=== PATIENT | male | born 1960 | race Caucasian/White ===

== ENCOUNTER 2021-06-10 12:36 | Outpatient (REF) | payer OTHER, SELFPAY ==
[2021-06-10 12:47] LABS: MANUAL DIFF FLAG NO
[2021-06-10 13:02] LABS: Basophils Percent Auto 0.4 % (0-2); Eosinophils Absolute Auto 0.1 X10*3/uL (0.0-0.4); Eosinophils Percent Auto 1.9 % (0-4); Hemoglobin 14.5 g/dl (14.0-18.0); Imm Gran Abs Auto 0.01 X10*3/uL (0.00-0.03); Imm Gran Pct Auto 0.2 % (0.0-0.4); Lymphocytes Absolute Auto 1.7 X10*3/uL (1.2-4.9); Lymphocytes Percent Auto 32.5 % (20-40); Mean Corpuscular HGB Conc 34.5 g/dl (31.0-36.0); Mean Corpuscular Hemoglobin 30.4 pg (27.0-33.0); Mean Corpuscular Volume 88.1 fL (80.0-98.0); Mean Platelet Volume 9.4 fL (9.4-12.4); Monocytes Absolute Auto 0.5 X10*3/uL (0.1-1.2); Neutrophils Absolute Auto 2.9 x10*3/uL (2.0-8.3); Platelet Count 187 X10*3/uL (160-400); Red Blood Count 4.77 X10*6/uL (4.60-5.80); Red Cell Distribution Width 12.9 % (11.0-16.0); White Blood Count 5.2 X10*3/uL (4.8-10.8)
[2021-06-10 13:37] LABS: Alanine Aminotransferase 31 U/L (0-40); Albumin Level 4.3 g/dL (3.5-5.0); Alkaline Phosphatase 65 U/L (39-117); Anion Gap 13 (12-20); Aspartate Amino Transferase 26 U/L (5-37); Bilirubin Total 0.7 mg/dL (0.0-1.0); Blood Urea Nitrogen 21 mg/dL (9-16); Calcium 9.1 mg/dL (8.4-10.2); Carbon Dioxide 26 mmol/L (22-29); Chloride 103 mmol/L (96-108); Cholesterol 201 mg/dL; Estimated Glomerular Filt Rate > 60; Glucose Random 88 mg/dL (60-115); HDL Cholesterol 32 mg/dL; LDL Cholesterol Calculated 153 mg/dl; Sodium 138 mmol/L (135-145); Total Protein 7.3 g/dL (6.5-8.0); Triglycerides 83 mg/dL
[2021-06-10 13:59] LABS: Free T4 (Free Thyroxine) 0.86 ng/dL (0.71-1.85); Thyroid Stimulating Hormone 1.26 uIU/mL (0.32-4.0)
[2021-06-10 14:33] LABS: Folate 11.9 ng/mL (> or = 4.0); Vitamin B12 633 pg/mL (200-900)
[2021-06-15 02:07] LABS: Testosterone, Total 196 ng/dL (250-1100)
== END 2021-06-10 12:37 | disposition home or self-care (01) ==
LOC: HO.LAB 12:36
PROVIDERS: PCP Internal Medicine; Visit Provider Internal Medicine
DX: Z12.5 Encounter for screening for malignant neoplasm of prostate (principal); E29.1 Testicular hypofunction
CPT/HCPCS: 36415; 80053; 80061; 82607; 82746; 84153; 84403; 84439; 84443; 85025

== ENCOUNTER 2022-03-03 09:04 | Outpatient (REF) | payer OTHER, SELFPAY ==
[2022-03-03 10:21] LABS: Hematocrit 42.9 % (42.0-52.0); Hemoglobin 14.7 g/dl (14.0-18.0); Mean Corpuscular HGB Conc 34.3 g/dl (31.0-36.0); Mean Corpuscular Hemoglobin 30.6 pg (27.0-33.0); Mean Corpuscular Volume 89.4 fL (80.0-98.0); Mean Platelet Volume 9.9 fL (9.4-12.4); Platelet Count 218 X10*3/uL (160-400); Red Cell Distribution Width 12.4 % (11.0-16.0); White Blood Count 5.6 X10*3/uL (4.8-10.8)
[2022-03-03 11:12] LABS: Alanine Aminotransferase 24 U/L (0-40); Albumin Level 4.5 g/dL (3.5-5.0); Alkaline Phosphatase 80 U/L (39-117); Anion Gap 15 (12-20); Aspartate Amino Transferase 22 U/L (5-37); Bilirubin Direct 0.2 mg/dL (0.0-0.5); Bilirubin Total 0.5 mg/dL (0.0-1.0); Blood Urea Nitrogen 21 mg/dL (9-16); Calcium 9.5 mg/dL (8.4-10.2); Carbon Dioxide 26 mmol/L (22-29); Chloride 104 mmol/L (96-108); Estimated Glomerular Filt Rate > 60; Glucose Random 98 mg/dL (60-115); Potassium 4.6 mmol/L (3.3-5.1); Sodium 140 mmol/L (135-145); Thyroid Stimulating Hormone 0.95 uIU/mL (0.32-4.0); Total Protein 7.2 g/dL (6.5-8.0)
== END 2022-03-03 09:05 | disposition home or self-care (01) ==
LOC: HO.LAB 09:04
PROVIDERS: PCP Internal Medicine; Visit Provider Internal Medicine
DX: M20.41 Other hammer toe(s) (acquired), right foot (principal)
CPT/HCPCS: 36415; 80048; 80076; 84443; 85027

== ENCOUNTER 2022-10-16 10:00 | Outpatient (AMB) | payer SELFPAY ==
--- NOTE | 2022-10-16 10:01 | MHC.PC.OV ---
Vital Signs 10/16/22 10:03 Height 5 ft 11 in Weight 193 lb BMI 26.9 BP 126/76 Blood Pressure Location Lt brachial Position Sitting Pulse 68 Pulse Source Pulse Oximeter Pulse Oximetry (%) 99 Intake Visit Reasons: loss of appetite, abdominal discomfort Intake Note: pt is here for c/o loss of appetite and abd discomfort. patient had teeth pulled and loss of taste and doesnt have desire to eat [employer] Required: No Accompanied by: Self / Same As Patient Allergies No Known Allergies Allergy (Verified 10/16/22 10:09) Medication List - Last Reconciled 10/16/22 by Isidro Mata PA-C No Known Home Meds Tobacco use date assessed: 10/16/22 Dental Screening Dental Screen Date: 10/16/22 Did you have a dental visit in the last 12 months?: Yes Did you have a dental problem in the last 6 months where you did not have access to dental care?: No Was dental information given to patient?: Patient has dentist HPI loss of appetite, abdominal discomfort HPI Details Patient is a 62-year-old male here today for problem visit. This is the 1st time I am meeting this 62-year-old male with a past medical history significant for hyperlipidemia and hypogonadism. He reports he had a few teeth pulled recently and has since lost his appetite. Has lost 10 lb since February of 2022. reports having epigastric dyscomfort just before and after he eats. Otherwise denies any constipation or diarrhea, dark tarry stools. Does report having infrequent episodes of vomiting if he eats too fast. [facility] Medical History Bimalleolar ankle fracture Hand fracture, right Hepatitis C virus infection cured after antiviral drug therapy Hypercholesterolemia Hypogonadism in male Overweight (BMI 25.0-29.9) Wrist fracture, right Surgical History History of knee surgery History of shoulder surgery Family History Father Heart attack Mother Bone cancer Sister No problems noted. Sister No problems noted. Daughter No problems noted. Daughter No problems noted. Son No problems noted. Social History Housing: House Alcohol intake: never Patient Tobacco Use Status: Never used Tobacco Years Smoked: pot smoking e-Cigarette/Vaping Use: Never Used Second Hand Smoke Exposure: No Current occupational status: employed Cognitive needs: No Hearing needs: No Vision needs: No Questionnaire PHQ-9 Over the last 2 weeks, how often have you been bothered by any of the following problems? 1. Little interest or pleasure in doing things: not at all 2. Feeling down, depressed, or hopeless: not at all 3. Trouble falling or staying asleep, or sleeping too much: not at all 4. Feeling tired or having little energy: not at all 5. Poor appetite or overeating: not at all 6. Feeling bad about yourself - or that you are a failure or have let yourself or your family down: not at all 7. Trouble concentrating on things, such as reading the newspaper or watching television: not at all 8. Moving or speaking so slowly that other people could have noticed. Or the opposite - being so fidgety or restless that you have been moving around a lot more than usual: not at all 9. Thoughts that you would be better off or of hurting yourself in some way: not at all Total score: 0 Depression Screening Interpretation: Negative 13818 - PHQ-9 Billing: Yes Source: Developed by Drs. Davide Ramos, Melody Enriquez, Js Gregg and colleagues, with an educational ramon from [employer]. Thrive Questionnaire Date Thrive assessed: 10/16/22 I am a: Patient What is your living situation today?: I have a steady place to live Within the past 12 months, did the food you bought not last and you didn't have the money to get more?: Never true Within the past 12 months, did you worry whether your food would run out before you got money to buy more?: Never true Do you have trouble paying for medicines?: No Do you have trouble getting transportation to medical appointments?: No Do you have trouble paying your heating and electricity bill?: No Do you have trouble taking care of your child, family member or friend?: No Do you have trouble with day-to-day activities such as bathing, preparing meals, shopping, managing finances, etc.?: No Are you currently unemployed and looking for a job?: No Are you interested in more education?: No Please select the resources that you would like help with: None Currently or been in a relationship where the following occur: no concerns reported CARMITA-7 AMB Questionnaire CARMITA-7 Date CARMITA - 7 assessed: 10/16/22 Feeling nervous, anxious, or on edge: 0 = Not at all Not being able to stop or control worryin = Not at all Worrying too much about different things: 0 = Not at all Trouble relaxin = Not at all Being so restless that it is hard to sit still: 0 = Not at all Becoming easily annoyed or irritable: 0 = Not at all Feeling afraid as if something awful might happen: 0 = Not at all Total CARMITA-7 score (0-4 normal; 5-9 mild; 10-14 moderate; 15-21 severe): 0 Source: Developed by Drs. Davide Ramos, Melody Enriquez, Js Gregg and colleagues, with an educational ramon from [employer]. CARMITA-7 Assessment Billing CARMITA-7 Assessment Tool: CARMITA-7 Assessment 63513 Review of Systems Const Denies headache(s) Eyes Denies loss of vision ENT Denies vertigo, Denies dizziness, Denies headache(s) and Denies sore throat Card Denies chest pain, Denies leg edema and Denies lightheadedness Resp Denies cough, Denies hemoptysis and Denies wheezing GI Reports abdominal pain, Denies melena, Denies constipation, Denies diarrhea and Denies vomiting Denies dysuria, Denies urinary frequency and Denies urinary urgency Musc Denies arthralgias, Denies joint swelling, Denies numbness and Denies tingling Neuro Denies Abnormal speech present, Denies behavioral changes, Denies vertigo, Denies dizziness, Denies headache(s), Denies loss of vision, Denies memory loss, Denies numbness and Denies tingling Psych Denies anxiety, Denies behavioral changes, Denies depression, Denies memory loss and Denies panic attacks Darrion/Lymph Denies easy bleeding and Denies easy bruising Aller/Immun Denies wheezing Physical exam (Primary Care) Vital Signs: Last Vital Signs Pulse 68 10/16/22 10:03 BP 126/76 10/16/22 10:03 Pulse Ox 99 10/16/22 10:03 BMI result Body Mass Index 26.9 Tobacco/Smoking Status: Tobacco use Status Tobacco use date assessed 10/16/22 10/16/22 10:02 Patient Tobacco Use Status Never used Tobacco 10/16/22 10:02 e-Cigarette/Vaping Use Never Used 10/16/22 10:02 PHQ-9: PHQ-9 Score PHQ-9: Total score 0 10/16/22 10:08 Depression Screening Interpretation: Negative Thrive Assessment: Date of Thrive Assessment Date Thrive assessed 10/16/22 10/16/22 10:08 Currently or been in a relationship where the following occur: no concerns reported Const General: healthy appearing, no acute distress, alert and awake Nutritional Appearance: well nourished Orientation/consciousness: oriented to person, oriented to place and oriented to time HENMT Ears: TM's normal bilaterally General nose exam: Normal nasal mucous membranes and turbinates present Eyes Conjunctivae: conjunctivae normal Sclerae: sclerae normal Pupils: Equal, round and reactive pupils present Neck Neck: Yes no lymphadenopathy and Yes no JVD Thyroid: Thyroid normal Carotids: no bruits Resp Effort & Inspection: normal respiratory effort and not tachypneic Auscultation: no crackles, no rales, no rhonchi and no wheezes Cardio Rate: regular rate Rhythm: regular rhythm Heart sounds: no murmurs and normal S1 and S2 GI Palpation (GI): Soft to palpation, nontender, no hepatomegaly and no splenomegaly Auscultation: normal bowel sounds Skin General skin exam: no rashes or lesions noted and dry skin Neuro General: oriented to person, oriented to place and oriented to time Cranial nerves: Yes Equal, round and reactive pupils present Speech: No Abnormal speech present Gait exam (Neuro): Normal gait present Motor exam (neuro): no tremor noted Extrem Right upper extremity: full ROM Left upper extremity: full ROM Right lower extremity: full ROM; no edema Left lower extremity: full ROM; no edema Psych Mental Status: mental status grossly normal Speech and movement: Normal speech and movement present Affect: normal affect Attitude: cooperative Thought process: Normal thought process present Assessment and Plan Assessment & Plan (1) Gastritis: Code(s): K29.70 - Gastritis, unspecified, without bleeding Qualifiers: Gastritis type: unspecified gastritis Chronicity: chronic Gastritis bleeding: without bleeding Qualified Code(s): K29.50 - Unspecified chronic gastritis without bleeding Plan: Patient's signs symptoms most consistent with gastritis. Recently had major dental work done and appetite has been change. Will supply patient with omeprazole to use for the next 3 weeks on a daily basis. Advised on low gastric irritant foods. Will send for nonfasting labs including lipase and H pylori stool testing. Orders: Orders Basic Metabolic Panel Today K29.50 - Unspecified chronic gastritis without bleeding Complete Blood Count no Diff Today K29.50 - Unspecified chronic gastritis without bleeding H pylori Ag Stool Today K29.50 - Unspecified chronic gastritis without bleeding Lipase Today K29.50 - Unspecified chronic gastritis without bleeding Liver Panel Today K29.50 - Unspecified chronic gastritis without bleeding Medications: New omeprazole 20 mg PO DAILY 21 days 21 caps 0RF K29.50 - Unspecified chronic gastritis without bleeding Coding Level of Care Code Est Pt Level 3 (24002) Diagnoses Gastritis K29.50 Gastritis type: unspecified gastritis Chronicity: chronic Gastritis bleeding: without bleeding Additional Codes CARMITA-7 Assessment Billing - CARMITA-7 Assessment Tool: CARMITA-7 Assessment 45081 ([id number])
[2022-10-16 10:03] VITALS: BP 126/76; PULSE 68; O2SAT 99; BMI 26.9
== END 2022-10-16 10:30 | disposition home or self-care (01) ==
PROVIDERS: PCP Internal Medicine; Visit Provider Physician Assistant
DX: K29.50 Unspecified chronic gastritis without bleeding (principal)
CPT/HCPCS: 99213

== ENCOUNTER 2022-10-16 10:33 | Outpatient (REF) | payer OTHER, SELFPAY ==
[2022-10-16 11:41] LABS: Hematocrit 41.6 % (42.0-52.0); Hemoglobin 14.3 g/dl (14.0-18.0); Mean Corpuscular HGB Conc 34.4 g/dl (31.0-36.0); Mean Corpuscular Hemoglobin 30.7 pg (27.0-33.0); Mean Corpuscular Volume 89.3 fL (80.0-98.0); Mean Platelet Volume 10.2 fL (9.4-12.4); Platelet Count 199 X10*3/uL (160-400); Red Blood Count 4.66 X10*6/uL (4.60-5.80); Red Cell Distribution Width 13.3 % (11.0-16.0); White Blood Count 6.4 X10*3/uL (4.8-10.8)
[2022-10-16 12:10] LABS: Alanine Aminotransferase 20 U/L (0-40); Albumin Level 4.3 g/dL (3.5-5.0); Alkaline Phosphatase 70 U/L (39-117); Anion Gap 14 (12-20); Aspartate Amino Transferase 17 U/L (5-37); Bilirubin Direct 0.1 mg/dL (0.0-0.5); Bilirubin Total 0.5 mg/dL (0.0-1.0); Blood Urea Nitrogen 16 mg/dL (9-16); Calcium 9.3 mg/dL (8.4-10.2); Carbon Dioxide 25 mmol/L (22-29); Chloride 105 mmol/L (96-108); Estimated Glomerular Filt Rate > 60; Glucose Random 75 mg/dL (60-115); Lipase 55 U/L (8-78); Potassium 3.7 mmol/L (3.3-5.1); Sodium 140 mmol/L (135-145); Total Protein 7.4 g/dL (6.5-8.0)
== END 2022-10-16 10:34 | disposition home or self-care (01) ==
LOC: HO.LAB 10:33
PROVIDERS: PCP Internal Medicine; Visit Provider Physician Assistant
DX: Z11.2 Encounter for screening for other bacterial diseases (principal); K29.50 Unspecified chronic gastritis without bleeding
CPT/HCPCS: 36415; 80048; 80076; 83690; 85027; 87338

== ENCOUNTER 2023-04-23 09:29 | Outpatient (AMB) | payer MEDICAID, SELFPAY ==
[2023-04-23 09:41] VITALS: BP 108/72; PULSE 60; O2SAT 97; BMI 27.8
--- NOTE | 2023-04-23 09:41 | A.OFFPC_ITS ---
Vital Signs 04/23/23 09:41 Height 5 ft 11 in Weight 199 lb 8 oz BMI 27.8 BP 108/72 Blood Pressure Location Lt brachial Position Sitting Pulse 60 Pulse Source Pulse Oximeter Pulse Oximetry (%) 97 Oxygen Delivery Method Room Air Intake Visit Reasons: low testosterone Intake Note: Dr. Coreas's patient here today to discuss low testosterone levels. Line Technician Required: No Accompanied by: Self / Same As Patient Allergies No Known Allergies Allergy (Verified 04/23/23 09:44) Tobacco use date assessed: 04/23/23 Dental Screening Dental Screen Date: 04/23/23 Did you have a dental visit in the last 12 months?: Yes Did you have a dental problem in the last 6 months where you did not have access to dental care?: No Was dental information given to patient?: Patient has dentist HPI low testosterone HPI Details Patient is a 63-year-old male here today to discuss testosterone levels. Patient has a past medical history significant hyperlipidemia, GERD, hypogonadism. He reports over last several months feeling somewhat tired, lethargic, low libido. Did have his testosterone checked in 2021 showing 196. He is interested in his testosterone checked and perhaps starting medication for erectile dysfunction. [facility] Medical History Bimalleolar ankle fracture Hand fracture, right Hepatitis C virus infection cured after antiviral drug therapy Hypercholesterolemia Hypogonadism in male Overweight (BMI 25.0-29.9) Wrist fracture, right Surgical History History of knee surgery History of shoulder surgery Family History Father Heart attack Mother Bone cancer Sister No problems noted. Sister No problems noted. Daughter No problems noted. Daughter No problems noted. Son No problems noted. Social History Housing: House Alcohol intake: never Patient Tobacco Use Status: Never used Tobacco Years Smoked: pot smoking e-Cigarette/Vaping Use: Never Used Second Hand Smoke Exposure: No Current occupational status: employed Cognitive needs: No Hearing needs: No Vision needs: No Questionnaire PHQ-9 Over the last 2 weeks, how often have you been bothered by any of the following problems? 1. Little interest or pleasure in doing things: not at all 2. Feeling down, depressed, or hopeless: not at all 3. Trouble falling or staying asleep, or sleeping too much: not at all 4. Feeling tired or having little energy: not at all 5. Poor appetite or overeating: not at all 6. Feeling bad about yourself - or that you are a failure or have let yourself or your family down: not at all 7. Trouble concentrating on things, such as reading the newspaper or watching television: not at all 8. Moving or speaking so slowly that other people could have noticed. Or the opposite - being so fidgety or restless that you have been moving around a lot more than usual: not at all 9. Thoughts that you would be better off or of hurting yourself in some way: not at all Total score: 0 Depression Screening Interpretation: Negative Depression Screening Done: Yes 46745 - PHQ-9 Billing: Yes Source: Developed by Drs. Davide Ramos, Melody Enriquez, Js Gregg and colleagues, with an educational ramon from [employer]. Thrive Questionnaire Date Thrive assessed: 04/23/23 I am a: Patient What is your living situation today?: I have a steady place to live Within the past 12 months, did the food you bought not last and you didn't have the money to get more?: Never true Within the past 12 months, did you worry whether your food would run out before you got money to buy more?: Never true Do you have trouble paying for medicines?: No Do you have trouble getting transportation to medical appointments?: No Do you have trouble paying your heating and electricity bill?: No Do you have trouble taking care of your child, family member or friend?: No Do you have trouble with day-to-day activities such as bathing, preparing meals, shopping, managing finances, etc.?: No Are you currently unemployed and looking for a job?: No Are you interested in more education?: No Please select the resources that you would like help with: None Currently or been in a relationship where the following occur: no concerns reported THRIVE Score: 0 AUDIT C Alcohol Use Questionnaire (AUDIT-C) 1. How often do you have a drink containing alcohol?: Never 3. How often do you have six or more drinks on one occasion?: Never Total Score: 0 CARMITA-7 AMB Questionnaire CARMITA-7 Date CARMITA - 7 assessed: 04/23/23 Feeling nervous, anxious, or on edge: 0 = Not at all Not being able to stop or control worryin = Not at all Worrying too much about different things: 0 = Not at all Trouble relaxin = Not at all Being so restless that it is hard to sit still: 0 = Not at all Becoming easily annoyed or irritable: 0 = Not at all Feeling afraid as if something awful might happen: 0 = Not at all Total CARMITA-7 score (0-4 normal; 5-9 mild; 10-14 moderate; 15-21 severe): 0 Source: Developed by Drs. Davide Ramos, Melody Enriquez, Js Gregg and colleagues, with an educational ramon from [employer]. CARMITA-7 Assessment Billing CARMITA-7 Assessment Tool: CARMITA-7 Assessment 12639 Review of Systems Const Denies headache(s) Eyes Denies loss of vision ENT Denies vertigo, Denies dizziness, Denies headache(s) and Denies sore throat Card Denies chest pain, Denies leg edema and Denies lightheadedness Resp Denies cough, Denies hemoptysis and Denies wheezing GI Denies abdominal pain, Denies melena, Denies constipation, Denies diarrhea and Denies vomiting Denies dysuria, Denies urinary frequency and Denies urinary urgency Musc Denies arthralgias, Denies joint swelling, Denies numbness and Denies tingling Neuro Denies Abnormal speech present, Denies behavioral changes, Denies vertigo, Denies dizziness, Denies headache(s), Denies loss of vision, Denies memory loss, Denies numbness and Denies tingling Psych Denies anxiety, Denies behavioral changes, Denies depression, Denies memory loss and Denies panic attacks Darrion/Lymph Denies easy bleeding and Denies easy bruising Aller/Immun Denies wheezing Physical exam (Primary Care) Vital Signs: Last Vital Signs Pulse 60 04/23/23 09:41 BP 108/72 04/23/23 09:41 Pulse Ox 97 04/23/23 09:41 Oxygen Delivery Method Room Air 04/23/23 09:41 BMI result Body Mass Index 27.8 Tobacco/Smoking Status: Tobacco use Status Tobacco use date assessed 04/23/23 04/23/23 09:44 Patient Tobacco Use Status Never used Tobacco 04/23/23 09:44 e-Cigarette/Vaping Use Never Used 04/23/23 09:44 PHQ-9: PHQ-9 Score PHQ-9: Total score 0 04/23/23 09:48 Depression Screening Interpretation: Negative Thrive Assessment: Date of Thrive Assessment Date Thrive assessed 04/23/23 04/23/23 09:48 Currently or been in a relationship where the following occur: no concerns reported Const General: healthy appearing, no acute distress, alert and awake Nutritional Appearance: well nourished Orientation/consciousness: oriented to person, oriented to place and oriented to time HENMT Ears: TM's normal bilaterally General nose exam: Normal nasal mucous membranes and turbinates present Eyes Conjunctivae: conjunctivae normal Sclerae: sclerae normal Pupils: Equal, round and reactive pupils present Neck Neck: Yes no lymphadenopathy and Yes no JVD Thyroid: Thyroid normal Carotids: no bruits Resp Effort & Inspection: normal respiratory effort and not tachypneic Auscultation: no crackles, no rales, no rhonchi and no wheezes Cardio Rate: regular rate Rhythm: regular rhythm Heart sounds: no murmurs and normal S1 and S2 GI Palpation (GI): Soft to palpation, nontender, no hepatomegaly and no splenomegaly Auscultation: normal bowel sounds Skin General skin exam: no rashes or lesions noted and dry skin Neuro General: oriented to person, oriented to place and oriented to time Cranial nerves: Yes Equal, round and reactive pupils present Speech: No Abnormal speech present Gait exam (Neuro): Normal gait present Motor exam (neuro): no tremor noted Extrem Right upper extremity: full ROM Left upper extremity: full ROM Right lower extremity: full ROM; no edema Left lower extremity: full ROM; no edema Psych Mental Status: mental status grossly normal Speech and movement: Normal speech and movement present Affect: normal affect Attitude: cooperative Thought process: Normal thought process present Assessment and Plan Assessment & Plan (1) Low libido: Code(s): R68.82 - Decreased libido Plan: Reporting low libido. Does have low testosterone evident in 2021. Will recheck testosterone level and refer to Urology for hypogonadism workup. (2) Erectile dysfunction: Code(s): N52.9 - Male erectile dysfunction, unspecified Qualifiers: Erectile dysfunction type: unspecified Qualified Code(s): N52.9 - Male erectile dysfunction, unspecified Plan: Patient willing to trial sildenafil before sexual activity. Orders: Orders Testosterone, Free/Total Today E29.1 - Testicular hypofunction Prostate Specific Antigen Scr Today N52.9 - Male erectile dysfunction, unspecified, Z12.5 - Encounter for screening for malignant neoplasm of prostate Referrals Urology Referral E29.1 - Testicular hypofunction Medications: New sildenafil (Viagra) administer 30 minutes to 4 hours before activity 100 mg PO DAILY 5 days 5 tabs 0RF sexual activity N52.9 - Male erectile dysfunction, unspecified Coding Level of Care Code Est Pt Level 4 (39918) Diagnoses Low libido R68.82 Erectile dysfunction, unspecified erectile dysfunction type N52.9 Erectile dysfunction type: unspecified Additional Codes CARMITA-7 Assessment Billing - CARMITA-7 Assessment Tool: CARMITA-7 Assessment [id number] ([id number])
== END 2023-04-23 10:20 | disposition home or self-care (01) ==
PROVIDERS: PCP Internal Medicine; Visit Provider Physician Assistant
DX: R68.82 Decreased libido (principal); N52.9 Male erectile dysfunction, unspecified; E29.1 Testicular hypofunction
CPT/HCPCS: 99214

== ENCOUNTER 2023-04-23 10:24 | Outpatient (REF) | payer MEDICAID, OTHER, SELFPAY ==
[2023-04-23 11:52] LABS: Prostate Specific Antigen Scr 0.17 ng/mL (<0.05-4.0)
== END 2023-04-23 10:25 | disposition home or self-care (01) ==
LOC: HO.LAB 10:24
PROVIDERS: PCP Internal Medicine; Visit Provider Physician Assistant
DX: Z12.5 Encounter for screening for malignant neoplasm of prostate (principal); E29.1 Testicular hypofunction; N52.9 Male erectile dysfunction, unspecified
CPT/HCPCS: 36415; 84153; 84402; 84403

== ENCOUNTER 2023-05-02 13:50 | Outpatient (REF) | payer OTHER, SELFPAY ==
[2023-05-07 11:19] LABS: Testosterone, Free 54.5 pg/mL (35.0-155.0); Testosterone, Total 271 ng/dL (250-1100)
== END 2023-05-02 13:51 | disposition home or self-care (01) ==
LOC: HO.LAB 13:50
PROVIDERS: PCP Internal Medicine; Visit Provider Internal Medicine
DX: R68.82 Decreased libido (principal)
CPT/HCPCS: 36415; 84402; 84403

== ENCOUNTER 2023-07-20 13:55 | Outpatient (AMB) | payer OTHER, SELFPAY ==
--- NOTE | 2023-07-20 13:58 | A.OFFVIS_ITS ---
Intake Visit Reasons: ED/low testosterone Intake Note: New Patient presents for initial visit for low testosterone Urology Medications: none Blood Thinner: none Appraiser Land Required: No Accompanied by: Self / Same As Patient Allergies No Known Allergies Allergy (Verified 07/21/23 18:26) Medication List - Last Reconciled 07/21/23 by LUIS Loomis tadalafil (Cialis) 5 mg PO DAILY 90 days HPI Comments Details: Ernie is a very pleasant 63-year-old patient of Dr. Coreas. He has a past medical history of bimalleolar ankle fracture, hand fracture, hep C, wrist fracture, hypogonadism, and hypercholesteremia. He presents to the office today as a new patient for ongoing fatigue, low libido, and ED. In discussion with the patient today reports having followed up with his PCP as he has been noting over the last 2-3 years he continues to experience fatigue, low libido, and ED. he also reports noting intermittent issues with weak urinary stream. He otherwise denies urinary urgency, urinary frequency, incontinence, nocturia, hematuria, dysuria, foul smelling urine, flank pain, fever, and or chills. He reports previously not having insurance and was unable to have further workup however now that he has insurance he is following up with his PCP. In review of patient's chart it appears testosterone labs were ordered and performed. These results were reviewed with the patient today. PSA 07/01 0.2, 05/05 0.2 Testosterone 07/01 196, 05/05 271 Free testosterone: 05/05 54.5 Discussed at length potential causes for hypogonadism. Discussed further treatment options. Will discussed lifestyle modifications to assist with hypogonadism. He otherwise denies any other issues or concerns at this time. [facility] Medical History Bimalleolar ankle fracture Hand fracture, right Hepatitis C virus infection cured after antiviral drug therapy Wrist fracture, right Overweight (BMI 25.0-29.9) Hypogonadism in male Hypercholesterolemia Surgical History History of knee surgery History of shoulder surgery Family History Father Heart attack Mother Bone cancer Sister No problems noted. Sister No problems noted. Daughter No problems noted. Daughter No problems noted. Son No problems noted. Social History Housing: House Alcohol intake: never Patient Tobacco Use Status: Never used Tobacco Years Smoked: pot smoking e-Cigarette/Vaping Use: Never Used Second Hand Smoke Exposure: No Current occupational status: employed Cognitive needs: No Hearing needs: No Vision needs: No Review of Systems Const Reports no additional complaints Eyes Reports no additional complaints ENT Reports no additional complaints Card Reports as per HPI Resp Reports no additional complaints GI Reports as per HPI Reports as per HPI Musc Reports as per HPI Neuro Reports no additional complaints Psych Reports no additional complaints Endo Reports no additional complaints Darrion/Lymph Reports no additional complaints Aller/Immun Reports no additional complaints Physical Exam Const General: cooperative, healthy appearing, comfortable, no acute distress, well developed, alert and awake Orientation/consciousness: patient oriented x3 Limitations: no limitations HEENT Head: Yes normal to inspection, Yes normocephalic and Yes atraumatic Ears: hearing grossly normal bilaterally Eyes General: appearance normal, both eyes and all related structures Neck Neck: Yes normal visual inspection and Yes trachea midline Chest Chest palpation & inspection: normal inspection of the chest Resp Effort & Inspection: normal respiratory effort and able to speak in complete sentences Cardio Rate: regular rate GI Inspection: Yes normal to inspection General: Yes no CVA tenderness Back/Spine/Pelvis Back: no CVA tenderness Skin General skin exam: no rashes or lesions noted Neuro General: patient oriented x3 Extrem General: Yes normal to inspection Psych Appearance: grossly normal and well kempt Mental Status: mental status grossly normal Speech and movement: Normal speech and movement present and Clear speech present Affect: normal affect Attitude: cooperative Thought process: Normal thought process present Thought content: Normal thought content present Insight: Fair insight present (Psych) Judgement: Fair judgement present (Psych) Assessment & Plan Assessment & Plan (1) Hypogonadism in male: Code(s): E29.1 - Testicular hypofunction Category: Medical (2) Low libido: Code(s): R68.82 - Decreased libido Category: Medical (3) Erectile dysfunction: Code(s): N52.9 - Male erectile dysfunction, unspecified Category: Medical Qualifiers: Erectile dysfunction type: unspecified Qualified Code(s): N52.9 - Male erectile dysfunction, unspecified Plan In office urinalysis results reviewed with the patient today; as noted above. Recent testosterone and PSA results reviewed with the patient today; as noted above. Start Cialis 5 mg daily as discussed and prescribed. Discussed potential causes of hypogonadism. Discussed further treatment options. Discussed lifestyle modifications to assist with hypogonadism. Will obtain testosterone free and total in 3 months. Follow-up in 3 months with lab to be completed prior; or sooner with any issues, concerns, and or questions. Orders: Orders Testosterone, Free/Total 3 Months E29.1 - Testicular hypofunction, R68.82 - Decreased libido Medications: New tadalafil (Cialis) [id number] [facility] [id number] Member [id number] 5 mg PO DAILY 90 days 90 tabs 1RF Patient Instructions: The patient had an opportunity to ask questions regarding the treatment plan. All questions were answered. Physical exam, labs, and imaging were discussed and reviewed in detail. As well as risks, benefits, and discussion of treatment choices. No major barriers to understanding were identified. The patient expressed understanding and agreement with the above treatment plan. The patient was made aware they should contact our office by phone for worsening of their current condition, the appearance of new symptoms, or with any questions or concerns. Compliance is encouraged with any medications and follow up testing that is ordered. It is a privilege to be allowed the opportunity to participate in? your urological care.? Again, if you have any questions or concerns If you have any questions or concerns please do not hesitate to contact me. The office is [phone]. This note is constructed using voice recognition software. While every effort has been made to ensure accuracy biology research assistant errors may have been included. Yours sincerely, LUIS Loomis Coding Level of Care Code New Pt Level 4 (17019) Diagnoses Hypogonadism in male E29.1 Low libido R68.82 Erectile dysfunction, unspecified erectile dysfunction type N52.9 Erectile dysfunction type: unspecified
== END 2023-07-20 14:33 | disposition home or self-care (01) ==
PROVIDERS: PCP Internal Medicine; Visit Provider Nurse Practitioner Family
DX: E29.1 Testicular hypofunction (principal); R68.82 Decreased libido; N52.9 Male erectile dysfunction, unspecified
CPT/HCPCS: 99204

== ENCOUNTER → 2023-07-20 13:55 | Outpatient (BNVA) | payer OTHER, SELFPAY | PROVIDERS: PCP Internal Medicine; Visit Provider Nurse Practitioner Family | DX: E29.1 Testicular hypofunction (principal); R68.82 Decreased libido; N52.9 Male erectile dysfunction, unspecified | CPT/HCPCS: 99202 ==

== ENCOUNTER 2023-10-17 15:50 | Outpatient (REF) | payer OTHER, SELFPAY ==
[2023-10-22 16:48] LABS: Testosterone, Free 28.2 pg/mL (35.0-155.0); Testosterone, Total 169 ng/dL (250-1100)
== END 2023-10-17 15:51 | disposition home or self-care (01) ==
LOC: HO.LAB 15:50
PROVIDERS: PCP Internal Medicine; Visit Provider Nurse Practitioner Family
DX: R68.82 Decreased libido (principal); E29.1 Testicular hypofunction; K29.50 Unspecified chronic gastritis without bleeding
CPT/HCPCS: 36415; 84402; 84403

== ENCOUNTER 2023-10-31 15:28 | Outpatient (AMB) | payer OTHER, SELFPAY ==
--- NOTE | 2023-10-31 15:29 | MHC.OFFVIS ---
Intake Visit Reasons: 3m/labs(set) Intake Note: Patient presents for tele visit follow up visit on: low testosterone and labs Testosterone: 169 Free Testosterone: 28.2 Urology Medications: Tadalafil Blood Thinner: none Sludge Control Attendant Required: No Accompanied by: Self / Same As Patient Allergies No Known Allergies Allergy (Verified 10/31/23 15:48) Medication List - Last Reconciled 10/31/23 by LUIS Loomis tadalafil (Cialis) 5 mg PO DAILY 90 days HPI Comments Details: Ernie is a very pleasant 63-year-old patient of Dr. Coreas. He has a past medical history of bimalleolar ankle fracture, hand fracture, hep C, wrist fracture, hypogonadism, and hypercholesteremia. He is being follows up on today via telehealth. Of note, patient was seen approximately 3 months ago as a new patient for ongoing fatigue, low libido, and ED at which time he was started on low-dose Cialis and labs were ordered for further assessment evaluation. These results were reviewed with the patient today as noted and trended below. In discussion with the patient today he reports since his last office visit here approximately 3 months ago he has been feeling significantly better. He reports having increased libido and overall has felt energy has improved. Although testosterone levels remain low we discussed obtaining labs 2 hours upon wakening as labs were drawn at the end of the day. Discussed further treatment options to include continuation of low-dose Cialis verses initiation of testosterone versus surveillance monitoring. Risks and benefits of these interventions were discussed. Otherwise denies any bothersome urinary issues. When asked he denies urinary urgency, urinary frequency, incontinence, nocturia, hematuria, dysuria, foul smelling urine, flank pain, fever, and or chills. PSA 07/01 0.2, 05/05 0.2 Testosterone 07/01 196, 05/05 271, 11/02 169 Free testosterone: 05/05 54.5 Discussed at length potential causes for hypogonadism. Discussed lifestyle modifications to assist with hypogonadism. He otherwise denies any other issues or concerns at this time. [facility] Medical History Bimalleolar ankle fracture Hand fracture, right Hepatitis C virus infection cured after antiviral drug therapy Wrist fracture, right Overweight (BMI 25.0-29.9) Hypogonadism in male Hypercholesterolemia Surgical History History of knee surgery History of shoulder surgery Family History Father Heart attack Mother Bone cancer Sister No problems noted. Sister No problems noted. Daughter No problems noted. Daughter No problems noted. Son No problems noted. Social History Housing: House Alcohol intake: never Patient Tobacco Use Status: Never used Tobacco Years Smoked: pot smoking e-Cigarette/Vaping Use: Never Used Second Hand Smoke Exposure: No Current occupational status: employed Cognitive needs: No Hearing needs: No Vision needs: No Review of Systems Const Reports no additional complaints Eyes Reports no additional complaints ENT Reports no additional complaints Card Reports as per HPI Resp Reports no additional complaints GI Reports as per HPI Reports as per HPI Musc Reports as per HPI Neuro Reports no additional complaints Psych Reports no additional complaints Endo Reports no additional complaints Darrion/Lymph Reports no additional complaints Aller/Immun Reports no additional complaints Physical Exam Const General: cooperative Orientation/consciousness: patient oriented x3 Resp Effort & Inspection: able to speak in complete sentences Neuro General: patient oriented x3 Psych Speech and movement: Clear speech present Attitude: cooperative Thought content: Normal thought content present Insight: Fair insight present (Psych) Judgement: Fair judgement present (Psych) Telehealth Telehealth Telehealth Platform: [facility] Location of provider rendering services: practice address Location of patient: address on file Patient Identification confirmed using: Name, : Yes Telehealth method: voice only Patient verbally consented to treatment: Yes Patient verbally consented to billing insurance company: Yes Patient informed of any privacy concerns related to visit: Yes Minutes spent on Phone/Video with Pt.: 15 Assessment & Plan Assessment & Plan (1) Low libido: Code(s): R68.82 - Decreased libido Category: Medical (2) Erectile dysfunction: Code(s): N52.9 - Male erectile dysfunction, unspecified Category: Medical Qualifiers: Erectile dysfunction type: unspecified Qualified Code(s): N52.9 - Male erectile dysfunction, unspecified (3) Hypogonadism in male: Code(s): E29.1 - Testicular hypofunction Category: Medical Plan Recent testosterone results reviewed with the patient today; as noted above. Continue Cialis 5 mg daily as discussed and prescribed; refill provided. Discussed potential causes of hypogonadism. Discussed further treatment options as well Discussed lifestyle modifications to assist with hypogonadism. Will obtain testosterone free and total in 3 months. Follow-up in 3 months with lab to be completed prior; or sooner with any issues, concerns, and or questions. Orders: Orders Testosterone, Free/Total 3 Months N52.9 - Male erectile dysfunction, unspecified, R68.82 - Decreased libido Medications: Refilled tadalafil (Cialis) [id number] [facility] [id number] Member [id number] 5 mg PO DAILY 90 days 90 tabs 2RF Patient Instructions: The patient had an opportunity to ask questions regarding the treatment plan. All questions were answered. Physical exam, labs, and imaging were discussed and reviewed in detail. As well as risks, benefits, and discussion of treatment choices. No major barriers to understanding were identified. The patient expressed understanding and agreement with the above treatment plan. The patient was made aware they should contact our office by phone for worsening of their current condition, the appearance of new symptoms, or with any questions or concerns. Compliance is encouraged with any medications and follow up testing that is ordered. It is a privilege to be allowed the opportunity to participate in? your urological care.? Again, if you have any questions or concerns If you have any questions or concerns please do not hesitate to contact me. The office is [phone]. This note is constructed using voice recognition software. While every effort has been made to ensure accuracy presentation designer errors may have been included. Yours sincerely, LUIS Loomis Coding Level of Care Code Tele Est Pt Level 3 (68548) Diagnoses Low libido R68.82 Erectile dysfunction, unspecified erectile dysfunction type N52.9 Erectile dysfunction type: unspecified Hypogonadism in male E29.1
== END 2023-10-31 16:32 | disposition home or self-care (01) ==
LOC: HO.HUSH 15:28
PROVIDERS: PCP Internal Medicine; Visit Provider Nurse Practitioner Family
DX: R68.82 Decreased libido (principal); N52.9 Male erectile dysfunction, unspecified; E29.1 Testicular hypofunction
CPT/HCPCS: 99213

== ENCOUNTER → 2023-10-31 15:28 | Outpatient (BNVA) | payer OTHER, SELFPAY | PROVIDERS: PCP Internal Medicine; Visit Provider Nurse Practitioner Family ==

== ENCOUNTER 2023-11-06 06:25 | Day surgery (SDC) | payer OTHER, SELFPAY ==
[2023-11-02 12:41] VITALS: BMI 29.9
[2023-11-06 06:34] VITALS: BMI 29.1
[2023-11-06] MEDS: Lactated Ringers 1,000 ML 80 ML IVCONT (06:34)
[2023-11-06 06:49] VITALS: BP 123/79; PULSE 60; RESP 18; TEMP 36.7; O2SAT 98
--- NOTE | 2023-11-06 07:29 | MHC.SHP ---
Pre-Procedural Eval Section A - 24 Hr Update-Section A only Date of Service: 11/06/23 Section B - Complete if H&P > 30 days Chief Complaint: screening Details of Present Illness: see H&P no changes Relevant Family History (Specify if Yes): No Relevant Social History: None Present Medications: see Short Stay Collaborative assessment Medical History: No relevant PMH Allergies: Allergies Allergy/AdvReac Type Severity Reaction Status Date / Time No Known Allergies Allergy Verified 11/06/23 06:40 Review of Systems Sugical H&P ROS: Negative: Constitution, Cardiovascular, Respiratory, Neurological, Psychiatric, Hem-Onc, Allergic/Immunologic, Gastrointestinal, Genitourinary, Musculoskeletal, Integumentary, Endocrine and Eyes/Ears/Nose/Throat Exam Surgical H&P Exam: Normal: HEENT, Normal: Heart, Normal: Lungs, Normal: Extremities, Normal: Abdomen, Normal: Skin and Normal: Neurological Plan Diagnosis/Plan: Unchanged I have reviewed the history and physical and performed a pertinent physical examination on my patient. No changes have occurred unless specified. Time Spent With Patient Time: Total time managing care of this patient today ____ minutes.
[2023-11-06 08:07] VITALS: BP 103/64; PULSE 47; RESP 16; TEMP 36.3; O2SAT 98
[2023-11-06 08:22] VITALS: BP 117/74; PULSE 47; RESP 16; TEMP 36.3; O2SAT 97
--- NOTE | 2023-11-06 08:23 | P.CONAN_ITS ---
HPI - Anesthesia Eval Consult details Narrative: for colon screen [facility] Active Problems Active Problems: All Active Problems Erectile dysfunction (Acute) Low libido (Acute) Gastritis (Acute) Wrist pain, right (Acute) Annual physical exam (Acute) Hammer toe of right foot (Acute) Hypogonadism in male (Acute) Hypercholesterolemia (Acute) Overweight (BMI 25.0-29.9) (Acute) Past Medical History Medical History Bimalleolar ankle fracture Hand fracture, right Hepatitis C virus infection cured after antiviral drug therapy Wrist fracture, right Overweight (BMI 25.0-29.9) Hypogonadism in male Hypercholesterolemia Family History Family History Father Heart attack Mother Bone cancer Sister No problems noted. Sister No problems noted. Daughter No problems noted. Daughter No problems noted. Son No problems noted. Family history of problems with anesthesia: No Surgical History Surgical History H/O colonoscopy History of knee surgery History of shoulder surgery History of Problems with Anesthesia: No Social History Social History Housing: House Are you a primary personal care worker to a significant other at home: No Do you presently have visiting nurse or other home services: No Alcohol intake: never Patient Tobacco Use Status: Never used Tobacco Years Smoked: pot smoking e-Cigarette/Vaping Use: Never Used Second Hand Smoke Exposure: No Substance Use Frequency: Daily Have you been hit, kicked, punched, or otherwise hurt by someone within the past year? If so, by whom?: No Are you DNR?: No Advance Directives: No Advance Directives Information Provided: Yes Recently lost weight without trying: No Nutrition Risks: No Nutritional Risk Current occupational status: employed Cognitive needs: No Hearing needs: No Vision needs: No Meds Allergies Allergy/AdvReac Type Severity Reaction Status Date / Time No Known Allergies Allergy Verified 11/06/23 06:40 Active Medications: Current Medications Lactated Ringer's (Lr) 1,000 mls @ 80 mls/hr IVCONT .[id number] MADELYN Last Admin: 11/06/23 06:34 Dose: 80 mls/hr Exam Height,Weight and Vital Signs: Height 5 ft 9.5 in Weight 90.718 kg Last Vital Signs Temp 97.3 F 11/06/23 08:07 Pulse 47 L 11/06/23 08:07 Resp 16 11/06/23 08:07 BP 103/64 11/06/23 08:07 Pulse Ox 98 11/06/23 08:07 O2 Del Method Nasal Cannula with Capnography 11/06/23 08:07 O2 Flow Rate 3 11/06/23 08:07 Airway Mallampati Class: II TM Dist: >3cm Neck ROM: Limited Heart: rrr Lungs: cta Assessment and Plan Assessment Anesthesia Assessment: Anesthesia Plan Discussed Final Anesthetic Review Family History of Problems with Anesthesia: No History of Problems with Anesthesia: No NPO: Yes ASA Class: II Final Preanesthetic Review: No Changes in Pt Med Stat, Meds/Allgs Chart Reviewed, Consent Obtained/Reviewed and Anes Risks/Benef Reviewed Patient Risk: Low Procedure Risk: Low Anesthetic Plan Anesthetic Plan: MAC: Disposition: Standard PACU
--- NOTE | 2023-11-06 08:25 | OP_ITS ---
DATE OF SERVICE: 11/06/2023 SURGEON: Lukas Tripp MD INDICATIONS: Colon cancer screening. PREOPERATIVE DIAGNOSIS: POSTOPERATIVE DIAGNOSIS: PROCEDURE PERFORMED: Colonoscopy to the terminal ileum. ESTIMATED BLOOD LOSS: COMPLICATIONS: ANESTHESIA: ASSISTANTS: SPECIMENS: MEDICATIONS: Monitored anesthesia care. DESCRIPTION OF PROCEDURE: A history and physical were performed. The risks and benefits of the procedure were explained to the patient. Informed consent was obtained. The patient was placed in the left lateral decubitus position. A digital rectal exam was performed and was found to be normal. The Olympus pediatric video colonoscope was introduced into the rectum and advanced into the cecum. The cecum was identified by transillumination, palpation, and identification of ileocecal valve, examination was performed. The scope was removed. He tolerated the procedure well and was returned to the recovery area in stable condition. FINDINGS: The terminal ileum was examined and appeared normal. The visualized colonic mucosa was within normal limits. No polyps were identified. Retroflexed examination showed some small internal hemorrhoids. There were few diverticula seen in the sigmoid colon. IMPRESSION: Normal colonoscopy. RECOMMENDATIONS: 1. Follow up as needed. 2. Repeat colonoscopy is recommended in 10 years for average-risk individuals. MD ALYSSA Wilson/ARMANI / [id number]
== END 2023-11-06 08:58 | disposition home or self-care (01) ==
PROVIDERS: PCP Internal Medicine; Visit Provider Internal Medicine Gastroenterology
PROC: 0DJD8ZZ Inspection of Lower Intestinal Tract, Via Natural or Artificial Opening Endoscopic (ICD-10-PCS; CPT 45378; principal; 2023-11-06 07:30)
DX: Z12.11 Encounter for screening for malignant neoplasm of colon (principal); K64.8 Other hemorrhoids; K57.30 Diverticulosis of large intestine without perforation or abscess without bleeding; E29.1 Testicular hypofunction; Z86.19 Personal history of other infectious and parasitic diseases; Z79.899 Other long term (current) drug therapy; Z98.890 Other specified postprocedural states
CPT/HCPCS: 45378; J2704

== ENCOUNTER 2024-02-05 15:54 | Outpatient (AMB) | payer OTHER, SELFPAY ==
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
== END 2024-02-05 16:30 ==
PROVIDERS: PCP Internal Medicine; Visit Provider Nurse Practitioner Family
DX: R35.1 Nocturia (principal); N52.9 Male erectile dysfunction, unspecified; R68.82 Decreased libido; Z13.9 Encounter for screening, unspecified
CPT/HCPCS: 99214

== ENCOUNTER → 2024-02-05 15:54 | Outpatient (BNVA) | payer OTHER, SELFPAY | PROVIDERS: PCP Internal Medicine; Visit Provider Nurse Practitioner Family | DX: E29.1 Testicular hypofunction (principal); R35.1 Nocturia; R68.82 Decreased libido; N39.41 Urge incontinence; E11.69 Type 2 diabetes mellitus with other specified complication; N52.1 Erectile dysfunction due to diseases classified elsewhere | CPT/HCPCS: 51798; 81003; 99212 ==

== ENCOUNTER 2024-02-18 07:52 | Outpatient (REF) | payer OTHER, SELFPAY ==
--- NOTE | ~2024-02-18 | US_ITS ---
EXAMINATION: US RETROPERITONEAL COMPLETE (RENAL) CLINICAL INFORMATION: Nocturia. COMPARISON: June 04, 2017 US Abdomen. TECHNIQUE: Real-time imaging of the kidneys and bladder. FINDINGS: RIGHT KIDNEY: 11.1 x 4.8 x 4.4 cm (SAG x AP x TRV). No hydronephrosis. No renal calculi. Renal cortical thickness is normal. Limited visualization. LEFT KIDNEY: 11.1 x 6.1 x 5.5 cm (SAG x AP x TRV). No hydronephrosis. No renal calculi. Renal cortical thickness is normal. Limited visualization. BLADDER: Well-distended. Bilateral ureteral jets are demonstrated. Prevoid bladder volume is 176 mL. Postvoid bladder volume is 3.2 mL. Prostate volume 9.3 mL. US/US retroperitoneal comp IMPRESSION: No hydronephrosis. No renal calculi. Prostate volume 9.3 mL, although visualization limited due to shadowing from overlying structures. Electronically signed by: Melonie Scott MD 03/31/2024 10:15 AM CURTIS
[2024-02-19 19:23] LABS: Lutenizing Hormone 2.6 mIU/mL (1.6-15.2)
--- OUTSIDE RECORDS SUMMARY | 2024-02-20 12:43 | XMS_ITS ---
Author Organization [facility] Address [address] [place] [id number] Care Team Providers Care Core Winder Name Role Phone Mary Coreas MD Primary Care Provider Lukas Patricio Jr Unavailable REASON FOR VISIT screening Encounters Encounter Location Date Provider Diagnosis [facility] [address], [place] [phone] 11/06/2023 Lukas Tripp Jr Colon cancer screening Z12.11 ASSESSMENTS Encounter Date Diagnosis Assessment Notes Treatment Notes Treatment Clinical Notes 11/06/2023 Colon cancer screening (ICD-10 - Z12.11) PLAN OF TREATMENT No Information
--- OUTSIDE RECORDS SUMMARY | 2024-02-20 12:43 | XMS_ITS | Patient Health Record ---
Author Organization [facility] Address [address] [place] [phone] Care Team Providers Care Implementation Consultant Name Role Phone Mary Coreas MD Primary Care Provider Lukas Patricio Jr Unavailable ALLERGIES No Known Allergies REASON FOR REFERRAL No Information MEDICATIONS Medication SIG (Take, Route, Frequency, Duration) Notes Start Date End Date Status Tadalafil 5 MG TAKE 1 TABLET BY KEVIN TH EVERY DAY FOR 90 DAYS Oral for 90 Active MiraLax (colon prep) 17 GM/SCOOP mixed with Gatorade or Crystal Light Orally begin at 5:00 p.m. the day before the procedure for 1 day 08/09/2023 Active IMMUNIZATIONS Vaccine Route Administration Date Status Comme nts Influenza Unknown 08/09/2023 Refused SOCIAL HISTORY Sex Assigned At : Social History Observation Description Sex Assigned At Unknown PROBLEMS Problem Type ICD Code Onset Dates Problem Status W/U Status Risk SNOMED Code Notes Problem Colon cancer screening (Z12.11) Active confirmed 469217390 Problem Hepatitis C virus infection without hepatic coma, unspecified chronicity (B19.20) Active confirmed 00578001 VITAL SIGNS Temperature 98.0 degrees Fahrenheit 08/09/2023 Blood pressure diastolic 00 mm Hg 08/09/2023 Height 69.5 in 08/09/2023 Blood pressure systolic 000 mm Hg 08/09/2023 Weight 205 lb 2 oz lbs 08/09/2023 BMI 29.85 kg/m2 08/09/2023 Encounters Encounter Location Date Provider Diagnosis [facility] [address] [place] [id number] 08/22/[address] [facility] [address] [place] [id number] 11/06/2023 Lukas Tripp Jr Colon cancer screening Z12.11 [facility] [address] [place] [address] 08/09/2023 Lukas Tripp Jr Colon cancer screening Z12.11 and Hepatitis C virus infection without hepatic coma, unspecified chronicity B19.20 ASSESSMENTS Encounter Date Diagnosis Assessment Notes Treatment Notes Treatment Clinical Notes 11/06/2023 Colon cancer screening (ICD-10 - Z12.11) 08/09/2023 Colon cancer screening (ICD-10 - Z12.11) 08/09/2023 Hepatitis C virus infection without hepatic coma, unspecified chronicity (ICD-10 - B19.20) PLAN OF TREATMENT Future Test Test Name Order Date COLONOSCOPY 08/09/2012 COLONOSCOPY 08/09/2023 Insurance Providers Payer Name Payer Address Payer Phone Subscriber Number Group Number Insured Name Patient Relationship to Insured Coverage Start Date Coverage End Date [facility] [address] [address] [place], [place] [id number] ERAN AMADOR Self - patient is the insured MEDICAL (GENERAL) HISTORY Medical History History ICD Code Hepatitis C, 6 months treatment IFN/riba virin 2006, with SVR. Colonoscopy 03/25, normal, ten-year follo wup Low testosterone Surgical History Surgery Date(Month/Year) knee surgery rotator cuff tear repair hand surgery
--- OUTSIDE RECORDS SUMMARY | 2024-02-20 12:43 | XMS_ITS | Continuity of Care Document ---
Author Organization [facility] Address [address] [place] [address] [address] [place] [address]- Care Team Providers Care Tea Leaf Reader Name Role Phone Not on Staff, PCP Primary Care Physician Unavail able Encounter [facility] Date(s): 01/07/24 - 02/06/24 [facility] [address] [place], [place] [address] Encounter Type: Triage Allergies, Adverse Reactions, Alerts No Known Allergies Medications gabapentin 100 mg oral capsule 100 mg, By Mouth, 3 times a day, # 42 each, Refills 0, Tot. Refills 0, Maintenance, 01/01/24 2:44:00 PM EDT, Route to Pharmacy Electronically, [facility], Partial fill upon patient request if the prescription is for a schedule II opioid drug., 180.34, cm, 12/30/23 18:59:00 EDT, Height, 92.98, kg, 12/30/23 18:59:00 EDT, Dry Weight Start Date: 01/01/24 Stop Date: 01/15/24 Status: Ordered Quantity: 42.0 Unit: each Repeat number: 1 tadalafil 5 mg oral tablet 1 tablet = 5 mg, By Mouth, Daily Start Date: 12/30/23 Status: Ordered Repeat number: 1 thiamine 100 mg oral tablet 100 mg, By Mouth, 2 times a day, Refills 0, Maintenance, 01/01/24 2:47:00 PM EDT, Partial fill uponpatient request if the prescription is for a schedule II opioid drug. Start Date: 01/01/24 Status: Ordered Repeat number: 1 Problem List Condition Confirmation Course Effective Dates Status Health St [facility] Informant HLD (hyperlipidemia) Confirmed Active Social History Social History Type Response Smoking Status Never (less than 100 in lifetime) entered on: 07/20/18 Sex Sex Representation Male (finding) Patient Care team information Care Team Personnel Name: Tami Pina RN Position: [facility] ED RN W/OE and Tasks Member Role: Primary Care Nurse Name: Spencer Kim RN Position: [facility] RN Member Role: Primary Care Nurse Name: Mallory Pastrana RN Position: [facility] RN Member Role: Primary Care Nurse Name: Margie Angulo RN Position: [facility] RN Member Role: Primary Care Nurse Name: Not on Staff, PCP Position: [facility] Physician (General Medicine) Member Role: PCP Name: Joelle Lowe RN Position: [facility] RN Member Role: Primary Care Nurse Care Team Related Persons Name: LILIBETH PINEDA Name: TEN AMADOR Insurance Providers Guarantor name: ASHANTI Health Plan Information #: 1 Payer: [employer] Member Number: NA Policy Number: NA Group Number: NA
--- OUTSIDE RECORDS SUMMARY | 2024-02-20 12:43 | XMS_ITS | Continuity of Care Document ---
Author Organization [facility] As counts include 234 beds at the [facility] Address [address] [place] [address] [address] [place] [address]- Care Team Providers Care Regulatory Compliance Coordinator Name Role Phone Not on Staff, PCP Primary Care Physician Unavail able Encounter [facility] Date(s): 01/16/24 - 02/15/[address] [place], [place] [address] Attending Physician: Hardik Melchor Admitting Physician: AdmHardik romero Referring Physician: Admtr [id number] Encounter Type: Triage Allergies, Adverse Reactions, Alerts No Known Allergies Medications gabapentin 100 mg oral capsule 100 mg, By Mouth, 3 times a day, # 42 each, Refills 0, Tot. Refills 0, Maintenance, 01/01/24 2:44:00 PM EDT, Route to Pharmacy Electronically, [facility], Partial fill upon patient request [...] Team Personnel Name: Tami Pina RN Position: [facility] ED RN W/OE and Tasks Member Role: Primary Care Nurse Name: Spencer Kim RN Position: [facility] RN Member Role: Primary Care Nurse Name: Mallory Pastrana RN Position: [facility] RN Member Role: Primary Care Nurse Name: Margie Angulo RN Position: [facility] RN Member Role: Primary Care Nurse Name: Not on Staff, PCP Position: [facility] Physician (General Medicine) Member Role: PCP Name: Joelle Lowe RN Position: [facility] RN Member Role: Primary Care Nurse Care Team Related Persons Name: LILIBETH PINEDA Name: TEN AMADOR Insurance Providers Guarantor name: ASHANTI Health Plan Information #: 1 Payer: [employer] Member Number: NA Policy Number: NA Group Number: NA
--- OUTSIDE RECORDS SUMMARY | 2024-02-20 12:43 | XMS_ITS ---
Author Organization [facility] Address [address] [place] [phone] Care Team Providers Care Vendor Analyst Name Role Phone Po Mary ALATORRE Primary Care Provider Lukas Patricio Jr REASON FOR VISIT screening Encounters Encounter Location Date Provider Diagnosis [facility] [place] [address] [place], [place] [phone] 08/22/2023 Lukas Tripp Jr PLAN OF TREATMENT No Information
--- OUTSIDE RECORDS SUMMARY | 2024-02-20 12:43 | XMS_ITS | Continuity of Care Document ---
Author Organization [facility] Address [address] [place] [address] [address] [place] [address]- Care Team Providers Care Homicide Squad Commanding Officer Name Role Phone Not on Staff, PCP Primary Care Physician Unavail able Encounter [facility] Date(s): 01/16/24 - 01/23/[address] [place] [address]- Attending Physician: Tatyana JOSHUA, Rohith Florence Encounter Type: Office Visit Allergies, Adverse Reactions, Alerts No Known Allergies Medications gabapentin 100 mg oral capsule 100 mg, By Mouth, 3 times a day, # 42 each, Refills 0, Tot. Refills 0, Maintenance, 01/01/24 2:44:00 PM EDT, Route to Pharmacy Electronically, [facility], Partial fill upon patient request [...] St at[facility] Informant HLD (hyperlipidemia) Confirmed Active Vital Signs Most recent to oldest [Reference Range]: 1 Height 180.34 cm (01/16/24 3:28 PM) Oxygen Saturation [94-100 %] 97 % (01/16/24 3:28 PM) Pulse Rate [55-90 bpm] 71 bpm (01/16/24 3:28 PM) Blood Pressure [90-138/55-84 mm Hg] 118/ 79mm Hg (01/16/24 3:28 PM) Temperature [96.8-100.4 DegF] 97.2 DegF (01/16/24 3:28 PM) Mode of Delivery (Oxygen) Room air (01/16/24 3:28 PM) Blood pressure sites Arm, left (01/16/24 3:28 PM) Temperature Route Temporal (01/16/24 3:28 PM) Social History Social History Type Response Smoking Status Never (less than 100 in lifetime) entered on: 07/20/18 Sex Sex Representation Male (finding) Patient Care team information Care Team Personnel Name: Tami Pina RN Position: [facility] RN Member Role: Primary Care Nurse Name: Spencer Kim RN Position: [facility] RN Member Role: Primary Care Nurse Name: Mallory Pastrana RN Position: [facility] RN Member Role: Primary Care Nurse Name: Margie Angulo RN Position: [facility] RN Member Role: Primary Care Nurse Name: Not on Staff, PCP Position: [facility] Physician (General Medicine) Member Role: PCP Name: Joelle Lowe RN Position: [facility] RN Member Role: Primary Care Nurse Care Team Related Persons Name: LILIBETH PINEDA Name: TEN AMADOR Insurance Providers Guarantor name: ASHANTI Health Plan Information #: 1 Payer: [employer] Member Number: [id number] Policy Number: NA Group Number: NA Health Plan Information #: 2 Payer: [employer] Member Number: [id number] Policy Number: NA Group Number: NA
--- OUTSIDE RECORDS SUMMARY | 2024-02-20 12:43 | XMS_ITS ---
Author Organization [facility] Address [address] [place] [id number] Care Team Providers Care Cashier Wrapper Name Role Phone Mary Coreas MD Primary Care Provider Lukas Patricio Jr Unavailable ALLERGIES No Known Allergies REASON FOR VISIT Patient presents today for consultation MEDICATIONS Medication SIG (Take, Route, Frequency, Duration) Notes Start Date End Date Status Tadalafil 5 MG TAKE 1 TABLET BY EVERY DAY FOR 90 DAYS Oral for 90 Active MiraLax (colon prep) 17 GM/SCOOP mixed with Gatorade or Crystal Light Orally begin at 5:00 p.m. the day before the procedure for 1 day 08/09/2023 Active IMMUNIZATIONS Vaccine Route Administration Date Status Comme nts Influenza Unknown 08/09/2023 Refused SOCIAL HISTORY Tobacco Use: Social History Observation Description Date Details (start date - stop date) Never Smoker NA - NA Sex Assigned At : Social History Observation Description Sex Assigned At Unknown Tobacco Use/Smoking Question Answer Notes Patient is a nonsmoker Alcohol Screen Question Answer Notes Did you have a drink contain ing alcohol in the past year? Yes Points 1 Interpretation Negative How often did you have 6 or more drinks on one occasion in the past year? Never (0 point) How many drinks did you have on a typical day when you were drinking in the past year? 1 or 2 drinks (0 point) How often did you have a dri nk containing alcohol in the past year? Monthly or less (1 point) PROBLEMS Problem Type ICD Code Onset Dates Problem Status W/U Status Risk SNOMED Code Notes Problem Colon cancer screening (Z12.11) Active confirmed [id number] Problem Hepatitis C virus infection without hepatic coma, unspecified chronicity (B19.20) Active confirmed 13368811 VITAL SIGNS BMI 29.85 kg/m2 08/09/2023 Blood pressure systolic 000 mm Hg 08/09/19 24 Blood pressure diastolic 00 mm Hg 024 Height 69.5 in 08/09/2023 Temperature 98.0 degrees Fahrenheit 08/09/19 24 Weight 205 lb 2 oz lbs 08/09/2023 Encounters Encounter Location Date Provider Diagnosis [facility] [address] [place] [address] 08/09/2023 Lukas Tripp Jr Colon cancer screening Z12.11 and Hepatitis C virus infection without hepatic coma, unspecified chronicity B19.20 ASSESSMENTS Encounter Date Diagnosis Assessment Notes Treatment Notes Treatment Clinical Notes 08/09/2023 Colon cancer screening (ICD-10 - Z12.11) 08/09/2023 Hepatitis C virus infection without hepatic coma, unspecified chronicity (ICD-10 - B19.20) PLAN OF TREATMENT Medication Medication Name Sig Start Date Stop Date Notes MiraLax (colon prep) 17 GM/SCOOP mixed with Gatorade or Crystal Light Orally begin at 5:00 p.m. the day before the procedure for 1 day 08/09/2023 Future Test Test Name Order Date COLONOSCOPY 08/09/2023 Next Appt Details Follow Up: 1 Year, Reason: Progress Notes * Examination Category Sub-Category Detail Notes General Examination GENERAL APPEARANCE: in no ac [place] distress HEAD: normocephalic EYES: sclera non-icteric NECK/THYROID: no lymphadenopathy HEART: S1, S2 normal, no mu rmurs CHEST: normal shape and exp ansion LUNGS: clear to auscultatio n bilaterally ABDOMEN: soft, nontender, non distended, bowel sounds present, no organomegaly SKIN: anicteric EXTREMITIES: no clubbing, cyanosi s, or edema PSYCH: cognitive function i ntact ORAL CAVITY: mucosa moist
[2024-02-23 14:28] LABS: Testosterone, Total 311 ng/dL (250-1100)
== END 2024-02-18 07:53 | disposition home or self-care (01) ==
LOC: HO.US 07:52
PROVIDERS: PCP Internal Medicine; Visit Provider Nurse Practitioner Family
DX: N52.9 Male erectile dysfunction, unspecified (principal); R68.82 Decreased libido; E11.69 Type 2 diabetes mellitus with other specified complication; N52.1 Erectile dysfunction due to diseases classified elsewhere; R35.1 Nocturia
CPT/HCPCS: 36415; 76770; 83002; 84402; 84403

== ENCOUNTER 2024-04-02 15:09 | Outpatient (AMB) | payer OTHER, SELFPAY ==
--- NOTE | 2024-04-02 15:18 | A.OFFVIS_ITS ---
Intake Visit Reasons: 2m/US/PVR Intake Note: Patient is Present for Follow Up Ultrasound/Lab Urology Medication: Tamsulosin, Tadalafil Antibiotic Allergies: None Blood Thinners:None Tripe Washer Required: No Accompanied by: Self / Same As Patient Allergies No Known Allergies Allergy (Verified 04/02/24 15:52) Medication List - Last Reconciled 04/02/24 by ANA Loomis- tadalafil (Cialis) 5 mg PO DAILY 90 days tamsulosin 0.4 mg PO BEDTIME 30 days HPI Comments Details: Ernie is a very pleasant 64-year-old patient of Dr. Coreas. He has a past medical history of bimalleolar ankle fracture, hand fracture, hep C, wrist fracture, hypogonadism, and hypercholesteremia. He presents to the office today for follow-up of his weak urinary stream and hypogonadism. Of note, patient was last seen approximately 3 months ago at which time a retroperitoneal ultrasound was ordered for further assessment evaluation, labs were ordered, and the patient was started on low-dose Cialis as well as Flomax daily. Recent retroperitoneal ultrasound notes bilateral kidneys with no calculi, lesions, and or hydronephrosis. Prostate volume is approximately 10 mL. He reports noting somewhat improvement in his libido with 5 mg of Cialis daily however has recently ran out and is requesting refill. He reports no improvement in weak urinary stream with 0.4 mg of Flomax daily. He also reports noting episodes of nocturia up to 3-5 times per night however feels this is variable. He otherwise denies any bothersome urinary issues. When asked he denies urinary urgency, urinary frequency, incontinence, hematuria, dysuria, foul smelling urine, flank pain, fever, and or chills. In office urinalysis results reviewed with the patient today. PSA 07/01 0.2, 05/05 0.2 Testosterone 07/01 196, 05/05 271, 11/02 169, 03/04 311 Free testosterone: 05/05 54.5, 03/04 60.0 LH: 03/04 2.6 Discussed at length potential causes for hypogonadism. Discussed lifestyle modifications to assist with hypogonadism. We discuss trial of Clomid verses continuation of tadalafil. We discussed possible near future in office cystoscopy for further assessment evaluation. He otherwise denies any other issues or concerns at this time. PFSH Medical History Bimalleolar ankle fracture Hand fracture, right Hepatitis C virus infection cured after antiviral drug therapy Wrist fracture, right Overweight (BMI 25.0-29.9) Hypogonadism in male Hypercholesterolemia Surgical History H/O colonoscopy History of knee surgery History of shoulder surgery Family History Father Heart attack Mother Bone cancer Sister No problems noted. Sister No problems noted. Daughter No problems noted. Daughter No problems noted. Son No problems noted. Social History Housing: House Are you a primary manager medicare marketing to a significant other at home: No Do you presently have visiting nurse or other home services: No Alcohol intake: never Patient Tobacco Use Status: Never used Tobacco Years Smoked: pot smoking e-Cigarette/Vaping Use: Never Used Second Hand Smoke Exposure: No Current occupational status: employed Cognitive needs: No Hearing needs: No Vision needs: No Review of Systems Const Reports no additional complaints Eyes Reports no additional complaints ENT Reports no additional complaints Card Reports as per HPI Resp Reports no additional complaints GI Reports as per HPI Reports as per HPI Musc Reports as per HPI Neuro Reports no additional complaints Psych Reports no additional complaints Endo Reports no additional complaints Darrion/Lymph Reports no additional complaints Aller/Immun Reports no additional complaints Physical Exam Const General: cooperative, healthy appearing, comfortable, no acute distress, well developed, alert and awake Orientation/consciousness: patient oriented x3 Limitations: no limitations HEENT Head: Yes normal to inspection, Yes normocephalic and Yes atraumatic Ears: hearing grossly normal bilaterally Eyes General: appearance normal, both eyes and all related structures Neck Neck: Yes normal visual inspection and Yes trachea midline Chest Chest palpation & inspection: normal inspection of the chest Resp Effort & Inspection: normal respiratory effort and able to speak in complete sentences Cardio Rate: regular rate GI Inspection: Yes normal to inspection General: Yes no CVA tenderness Back/Spine/Pelvis Back: no CVA tenderness Skin General skin exam: no rashes or lesions noted Neuro General: patient oriented x3 Extrem General: Yes normal to inspection Psych Appearance: grossly normal and well kempt Mental Status: mental status grossly normal Speech and movement: Normal speech and movement present and Clear speech present Affect: normal affect Attitude: cooperative Thought process: Normal thought process present Thought content: Normal thought content present Insight: Fair insight present (Psych) Judgement: Fair judgement present (Psych) Results Reviewed Results Reviewed: Date of Service: 02/18/24 EXAMINATION: US RETROPERITONEAL COMPLETE (RENAL) FINDINGS: RIGHT KIDNEY: 11.1 x 4.8 x 4.4 cm (SAG x AP x TRV). No hydronephrosis. No renal calculi. Renal cortical thickness is normal. Limited visualization. LEFT KIDNEY: 11.1 x 6.1 x 5.5 cm (SAG x AP x TRV). No hydronephrosis. No renal calculi. Renal cortical thickness is normal. Limited visualization. BLADDER: Well-distended. Bilateral ureteral jets are demonstrated. Prevoid bladder volume is 176 mL. Postvoid bladder volume is 3.2 mL. Prostate volume 9.3 mL. IMPRESSION: No hydronephrosis. No renal calculi. Prostate volume 9.3 mL, although visualization limited due to shadowing from overlying structures. Assessment & Plan Assessment & Plan (1) Nocturia: Code(s): R35.1 - Nocturia Category: Medical (2) Erectile dysfunction: Code(s): N52.9 - Male erectile dysfunction, unspecified Category: Medical Qualifiers: Erectile dysfunction type: unspecified Qualified Code(s): N52.9 - Male erectile dysfunction, unspecified (3) Low libido: Code(s): R68.82 - Decreased libido Category: Medical (4) Hypogonadism in male: Code(s): E29.1 - Testicular hypofunction Category: Medical Plan Unable to obtain urine for urinalysis as patient unable to void Recent retroperitoneal ultrasound results reviewed with the patient today; as noted above. We discussed recent PSA, testosterone, and LH results with the patient today; as noted above. We discussed further treatment options to include trial of Clomid verses continuation of low-dose Cialis. We discussed at length potential causes of weak urinary stream as well as further treatment options and risks and benefits of these treatment options. Stop Flomax. Start terazosin. Refill provided on Cialis. We discussed lifestyle modifications to assist with hypogonadism, ED, and weak urinary stream Follow-up in 3 months with labs to be completed prior; or sooner with any issues, concerns, and or questions. Orders: Orders Lutenizing Hormone Today N52.9 - Male erectile dysfunction, unspecified, R68.82 - Decreased libido Testosterone, Free/Total Today N52.9 - Male erectile dysfunction, unspecified, R68.82 - Decreased libido Medications: New terazosin 5 mg PO BEDTIME 30 days 30 caps 3RF N40.1 - Benign prostatic hyperplasia with lower urinary tract symptoms, R35.0 - Frequency of micturition Changed From tadalafil (Cialis) [id number] [facility] Member [id number] 5 mg PO DAILY 90 days 90 tabs 2RF To tadalafil (Cialis) [id number] [facility] Member [id number] 10 mg (2 x 5 mg) PO DAILY 90 days 180 tabs 2RF Discontinued tamsulosin Discontinued Reason: Doctor's Order 0.4 mg PO BEDTIME 30 days 30 caps 3RF N40.1 - Benign prostatic hyperplasia with lower urinary tract symptoms, R35.1 - Nocturia Patient Instructions: The patient had an opportunity to ask questions regarding the treatment plan. All questions were answered. Physical exam, labs, and imaging were discussed and reviewed in detail. As well as risks, benefits, and discussion of treatment choices. No major barriers to understanding were identified. The patient expressed understanding and agreement with the above treatment plan. The patient was made aware they should contact our office by phone for worsening of their current condition, the appearance of new symptoms, or with any questions or concerns. Compliance is encouraged with any medications and follow up testing that is ordered. It is a privilege to be allowed the opportunity to participate in? your urological care.? Again, if you have any questions or concerns If you have any questions or concerns please do not hesitate to contact me. The office is [phone]. This note is constructed using voice recognition software. While every effort has been made to ensure accuracy help desk operator errors may have been included. Yours sincerely, LUIS Loomis Coding Level of Care Code Est Pt Level 4 (47802) Diagnoses Nocturia R35.1 Erectile dysfunction, unspecified erectile dysfunction type N52.9 Erectile dysfunction type: unspecified Low libido R68.82 Hypogonadism in male E29.1
== END 2024-04-02 15:52 | disposition home or self-care (01) ==
LOC: HO.HUSH 15:09
PROVIDERS: PCP Internal Medicine; Visit Provider Nurse Practitioner Family
DX: R35.1 Nocturia (principal); N52.9 Male erectile dysfunction, unspecified; R68.82 Decreased libido; E29.1 Testicular hypofunction
CPT/HCPCS: 99214

== ENCOUNTER → 2024-04-02 15:09 | Outpatient (BNVA) | payer OTHER, SELFPAY | PROVIDERS: PCP Internal Medicine; Visit Provider Nurse Practitioner Family | DX: N40.1 Benign prostatic hyperplasia with lower urinary tract symptoms (principal); R39.12 Poor urinary stream; E29.1 Testicular hypofunction; R35.1 Nocturia; N52.9 Male erectile dysfunction, unspecified; R68.82 Decreased libido; R35.0 Frequency of micturition | CPT/HCPCS: 99212 ==

== ENCOUNTER 2024-08-27 07:52 | Outpatient (REF) | payer OTHER, SELFPAY ==
--- OUTSIDE RECORDS SUMMARY | 2023-11-06 03:30 | XMS_ITS ---
Author Organization [facility] Address [address] [place] [phone] Care Team Providers Care Code Machine Operator Name Role Phone Mary Coreas MD Primary Care Provider Lukas Patricio Jr [phone] REASON FOR VISIT screening Encounters Encounter Location Date Provider Diagnosis [facility] [place] [address] [place] [phone] 11/06/2023 Lukas Tripp Jr Colon cancer screening Z12.11 Assessments Encounter Date Diagnosis (ICD Code) Assessment Notes Treatment Notes Treatment Clinical Notes Section Notes 11/06/2023 Colon cancer screening (ICD-10 - Z12.11) Plan Of Treatment No Information Progress Notes * ERAN AMADORDOB: [birth year] (64 yo M)Acc No.[id number]:11/06/2023 COLON WITH MAC Patient: ERAN HAWK Provider: Reilly Tripp MD :1960 A ge:63 Y S ex:Male Date:11/06/2023 Address:[address] [place], [place] [id number] Pcp:Mary Coreas MD Subjective: * Chief Complaints: [...] 0 11/06/2023 Generated for Deng brush/Gogo/Tawana on: 0 08/27/2024 07:58 AM JORDYN
[2024-08-28 06:49] LABS: Lutenizing Hormone 3.1 mIU/mL (1.6-15.2)
[2024-09-02 22:18] LABS: Testosterone, Total 267 ng/dL (250-1100)
== END 2024-08-27 07:53 | disposition home or self-care (01) ==
LOC: HO.LAB 07:52
PROVIDERS: PCP Internal Medicine; Visit Provider Nurse Practitioner Family
DX: N52.9 Male erectile dysfunction, unspecified (principal); R68.82 Decreased libido
CPT/HCPCS: 36415; 83002; 84402; 84403

== ENCOUNTER 2024-12-12 12:28 | Outpatient (AMB) | payer OTHER, SELFPAY ==
--- OUTSIDE RECORDS SUMMARY | 2023-08-22 09:50 | XMS_ITS ---
Author Organization [facility] Address [address] [place] [phone] Care Team Providers Care Bed Machine Operator Name Role Phone Mary Coreas MD Primary Care Provider Lukas Patricio Jr REASON FOR VISIT screening Encounters Encounter Location Date Provider Diagnosis [facility] [place] [address] [place], [place] [phone] 08/22/2023 Lukas Tripp Jr Plan Of Treatment No Information Progress Notes * ERAN AMADOR JDOB: [birth year] (64 yo M)Acc No.[id number]:08/22/2023 COLON WITH MAC Patient: ERAN HAWK Provider: Reilly Tripp MD :1960 A ge:63 Y S ex:Male Date:08/22/2023 Address:[address] [place], [place] [id number] Pcp:Mary Coreas MD Subjective: * Chief Complaints: * 1 . Screening. * Medical History: Objective: * Vitals: Assessment: Plan: * Treatment: * * The named appointment provid er may or may not be the originator of this progress note, and it is not deemed complete until electronically signed by the appointment provider. Sign off status: Pending * Provider: Reilly Tripp MD Date: 0 08/22/2023 Generated for Deng brush/Gogo/eTransmitting on: 1 01:10 PM EDT
--- OUTSIDE RECORDS SUMMARY | 2023-11-06 03:30 | XMS_ITS ---
Author Organization [facility] Address [address] [place] [phone] Care Team Providers Care Infection Control Coordinator Name Role Phone Mary Coreas MD Primary Care Provider Lukas Patricio Jr [phone] REASON FOR VISIT screening Encounters Encounter Location Date Provider Diagnosis [facility] [place] Outpatient [address] [place] [phone] 11/06/2023 Lukas Tripp Jr Colon cancer screening Z12.11 Assessments Encounter Date Diagnosis (ICD Code) Assessment Notes Treatment Notes Treatment Clinical Notes Section Notes 11/06/2023 Colon cancer screening (ICD-10 - Z12.11) Plan Of Treatment No Information Progress Notes * ERAN AMADORDOB: [birth year] (64 yo M)Acc No.[id number]:11/06/2023 COLON WITH MAC Patient: ERAN HAWK Provider: Reilly Tripp MD :1960 A ge:63 Y S ex:Male Date:11/06/2023 Address:[address] [place], [place] [id number] Pcp:Mary Coreas MD Subjective: * Chief Complaints: * 1 . Screening. * Medical History: Objective: * Vitals: Assessment: * Assessment: 1. C olon cancer screening - Z12.11 (Primary) Plan: * Treatment: * Procedure Codes: 4 5378 DIAGNOSTIC COLONOSCOPY * * The named appointment provid er may or may not be the originator of this progress note, and it is not deemed complete until electronically signed by the appointment provider. Sign off status: Pending * Provider: Reilly Tripp MD Date: 0 11/06/2023 Generated for Deng brush/Gogo/Tawana on: 1 01:09 PM JORDYN
[2024-12-12 12:36] VITALS: BP 118/70; PULSE 54; O2SAT 98; BMI 28.4
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
--- OUTSIDE RECORDS SUMMARY | 2024-12-12 13:10 | XMS_ITS | Clinical Summary ---
Author Organization [facility] Address [address] [place] [id number] Phone Care Team Providers Care Business Asst Name Role Phone Mary Coreas MD Primary Care Provider [phone] Allergies No known active allergies Medications No known medications Immunizations Immunization Administration Dates Next Due Tdap 10/12/2020 Social History Tobacco Use Types Packs/Day Years Used Date Smoking Tobacco: Never Smokeless Tobacco: Never Alcohol Use Standard Drinks/Week Comments Never 0 (1 standard drink = 0.6 oz pur e alcohol) Education Answer Date Recorded Are you interested in more education? Not on thania e 07/08/2022 Are you concerned about learning? Not on file 07/08/2022 No 07/08/2022 No 07/08/2022 Digital Access Answer Date Recorded No 08/08/2022 No 08/08/2022 Reliable internet access at home? Not on file 08/08/2022 Device with a working camera? Not on file Sex and Gender Information Value Date Recorded Sex Assigned at Male 10/12/2020 9:15 AM EDT Legal Sex Male 9:08 AM EDT Gender Identity Male 10/12/2020 9:15 AM EDT Sexual Orientation Not on file Last Filed Vital Signs Vital Sign Reading Time Taken Comments Blood Pressure 148/92 10/12/2020 11:36 AM EDT Pulse 74 10/12/2020 11:36 AM EDT Temperature 36.2 C (97.2 F) 10/12/2020 9:13 AM EDT Respiratory Rate 18 10/12/2020 11:36 AM EDT Oxygen Saturation 99% 10/12/2020 11:36 AM EDT Inhaled Oxygen Concentration - - Weight 93 kg (205 lb) 10/12/2020 9:13 AM EDT Height 179.1 cm (5' 10.5 ) 10/12/2020 9:13 AM ED T Body Mass Index 29 10/12/2020 9:13 AM EDT Plan of Treatment Not on file Medical Devices Not on file Care Teams Business Asst Relationship Specialty Start Date End Date Mary Coreas MD [address] [facility] [address] [place] [address] PCP - General Internal Medicine 10/12/20 Additional Source Comments The information contained in this document represents components of the legal health record. It is not the complete legal health record.[facility]
--- OUTSIDE RECORDS SUMMARY | 2024-12-12 13:10 | XMS_ITS | Patient Health Record ---
Author Organization [facility] Address [address] [place] [address] Care Team Providers Care Automatic Oven Operator Name Role Phone Mary Coreas Primary Care Provider Yesenia Giles Unavailable [phone] Allergies No Known Allergies Reason For Referral No Information Medications Medication SIG (Take, Route, Frequency, Duration) Notes Start Date End Date Status Bactrim DS 800-160 MG 1 tablet Orally Tw ice a day; Duration: 10 day(s) 04/13/2022 Active Ibuprofen 800 MG 1 tablet with food o r milk as needed Orally every 8 hrs; Duration: 30 days 03/15/2022 Active Percocet 5-325 MG 1 tablet as needed O rally every 4-6 hrs; Duration: 7 days 04/19/2022 Active Keflex 500 MG 1 capsule Orally delisa ry 12 hrs; Duration: 7 days Not-Taking Social History Tobacco Use: Social History Observation Description Date Details (start date - stop date) Never Smoker NA - NA Tobacco Use/Smoking Question Answer Notes Are you a: nonsmoker Additional Findings: Tobacco Non-User Current no n-smoker Alcohol Screen Question Answer Notes Did you have a drink containing alcohol in the p ast year? No Points 0 Interpretation Negative Tobacco use other than smoking: Question Answer Notes Are you an other tobacco user? No Problems Problem Type SNOMED Code ICD Code Onset Dates Problem Status W/U Status Risk Notes Problem Acquired hammer toe of right foot (548381647197482 5) Other hammer toe(s) (acquired), right foot (M20.41) Active confirmed Problem Acquired hammer toe of left foot (262128623021757 3) Other hammer toe(s) (acquired), left foot (M20.42) Active confirmed Problem Acquired hallux valgus (32115424) Hallux valgus (acquired), left foot (M20.12) Active confirmed Problem Acquired hallux valgus (25501995) Hallux valgus (acquired), right foot (M20.11) Active confirmed Problem Acquired hammer toe of right foot (030937499158971 5) Hammer toe of right foot (M20.41) Active confirmed Problem Acquired hammer toe of left foot (399184694310014 3) Hammer toe of left foot (M20.42) Active confirmed Problem Contracture of joint of left foot (360495586530477 ) Contracture of joint of left foot (M24.575) Active confirmed Problem Contracture of joint of right foot (370210207202321 ) Contracture of joint of right foot (M24.574) Active confirmed Plan Of Treatment Pending Test Test Name Order Date X ray : Foot, left 3V 10/14/2021 X ray : Foot, right 3V 03/28/2022 X ray : Foot, right 3V 04/04/2022 X ray : Foot, right 3V 04/10/2022 X ray : Foot, right 3V 04/18/2022 X ray : Foot, right 3V 05/03/2022 X ray : Foot, right 3V 06/02/2022 X ray : Foot, right 3V 10/14/2021 Insurance Providers Payer Name Payer Address Payer Phone Subscriber Number Group Number Insured Name Patient Relationship to Insured Coverage Start Date Coverage End Date [facility] [address] [place] [address] [id number] Ernie Phoenix Self - patient is the insured Medical (General) History Medical History History ICD Code Hypercholesterolemia hypogonadism Surgical History Surgery Date(Month/Year) knee surgery shoulder surgery Deuce right, Rk yepez ir 2nd,3rd, capsulotomy/tenotomy 2nd,3rd, 4th MPJ flex ten 4th,5th right 03/22/2022
--- OUTSIDE RECORDS SUMMARY | 2024-12-12 13:10 | XMS_ITS | Patient Health Record ---
Author Organization [facility] Address [address] [place] [id number] Care Team Providers Care Tanning Wheel Operator Name Role Phone Po Mary ALATORRE Primary Care Provider Lukas Patricio Jr Unavailable [phone] Allergies No Known Allergies Reason For Referral [...] the procedure for 1 day 08/09/2023 Active Immunizations Vaccine Route Administration Date Status Comme nts Influenza Unknown 08/09/2023 Refused Problems Problem Type SNOMED Code ICD Code Onset Dates Problem Status W/U Status Risk Notes Problem 936809277 Colon cancer screening (Z12.11) Active confirmed Problem 09373387 Hepatitis C virus infection without hepatic coma, unspecified chronicity (B19.20) Active confirmed Plan Of Treatment Future Test Test Name Order Date COLONOSCOPY 08/09/2012 COLONOSCOPY 08/09/2023 Insurance Providers Payer Name Payer Address Payer Phone Subscriber Number Group Number Insured Name Patient Relationship to Insured Coverage Start Date Coverage End Date [facility] [address] [address] [place], [place] [id number] ERAN AMADOR Self - patient is the insured Medical (General) History Medical History History ICD Code Hepatitis C, 6 months treatment IFN/riba virin 2006, with SVR. Colonoscopy 03/25, normal, ten-year follo wup Low testosterone Surgical History Surgery Date(Month/Year) knee surgery rotator cuff tear repair hand surgery
== END 2024-12-12 13:14 | disposition home or self-care (01) ==
LOC: HO.HMCH 12:29
PROVIDERS: PCP Internal Medicine; Visit Provider Internal Medicine
DX: Z00.00 Encounter for general adult medical examination without abnormal findings (principal); S32.401A Unspecified fracture of right acetabulum, initial encounter for closed fracture; N52.9 Male erectile dysfunction, unspecified; E78.00 Pure hypercholesterolemia, unspecified; K40.90 Unilateral inguinal hernia, without obstruction or gangrene, not specified as recurrent; E66.3 Overweight

== ENCOUNTER → 2024-12-12 12:28 | Outpatient (BNVA) | payer OTHER, SELFPAY | PROVIDERS: PCP Internal Medicine; Visit Provider Internal Medicine | DX: Z00.00 Encounter for general adult medical examination without abnormal findings (principal); N52.9 Male erectile dysfunction, unspecified; E66.3 Overweight; E29.1 Testicular hypofunction; E78.00 Pure hypercholesterolemia, unspecified; K40.90 Unilateral inguinal hernia, without obstruction or gangrene, not specified as recurrent; Z87.81 Personal history of (healed) traumatic fracture; Z68.28 Body mass index [BMI] 28.0-28.9, adult | CPT/HCPCS: 99396 ==

== ENCOUNTER 2024-12-17 11:53 | Outpatient (REF) | payer OTHER, SELFPAY ==
[2024-12-17 12:08] LABS: MANUAL DIFF FLAG NO
[2024-12-17 12:20] LABS: Hematocrit 41.3 % (42.0-52.0); Hemoglobin 14.2 g/dl (14.0-18.0); Imm Gran Abs Auto 0.02 X10*3/uL (0.00-0.03); Imm Gran Pct Auto 0.3 % (0.0-0.4); Lymphocytes Absolute Auto 1.7 X10*3/uL (1.2-4.9); Mean Corpuscular HGB Conc 34.4 g/dl (31.0-36.0); Mean Corpuscular Hemoglobin 30.7 pg (27.0-33.0); Mean Corpuscular Volume 89.2 fL (80.0-98.0); NRBC Abs Auto 0.000 X10*3/uL (0.0-0.012); NRBC Pct Auto 0.0 /100WBC (0.0-0.2); Platelet Count 171 X10*3/uL (160-400); Red Blood Count 4.63 X10*6/uL (4.60-5.80); White Blood Count 5.9 X10*3/uL (4.8-10.8)
[2024-12-17 12:58] LABS: Alanine Aminotransferase 22 U/L (0-40); Albumin Level 4.6 g/dL (3.5-5.0); Alkaline Phosphatase 71 U/L (39-117); Anion Gap 9 (12-20); Aspartate Amino Transferase 28 U/L (5-37); Blood Urea Nitrogen 21 mg/dL (9-16); Calcium 9.3 mg/dL (8.4-10.2); Carbon Dioxide 27 mmol/L (22-29); Chloride 108 mmol/L (96-108); Cholesterol 238 mg/dL (<200); Estimated Glomerular Filt Rate > 60; HDL Cholesterol 45 mg/dL (>40); Potassium 4.1 mmol/L (3.3-5.1); Sodium 140 mmol/L (135-145); Total Protein 7.2 g/dL (6.5-8.0); Triglycerides 89 mg/dL (<150)
[2024-12-17 13:15] LABS: Free T4 (Free Thyroxine) 0.83 ng/dL (0.71-1.85); Thyroid Stimulating Hormone 0.81 uIU/mL (0.32-4.0)
[2024-12-17 13:25] LABS: Folate 7.5 ng/mL (> or = 4.0); Vitamin B12 493 pg/mL (200-900)
== END 2024-12-17 11:54 | disposition home or self-care (01) ==
LOC: HO.LAB 11:53
PROVIDERS: PCP Internal Medicine; Visit Provider Internal Medicine
DX: E78.00 Pure hypercholesterolemia, unspecified (principal)
CPT/HCPCS: 36415; 80053; 80061; 82607; 82746; 84153; 84439; 84443; 85025